=== PATIENT | male | born 1935 | race Caucasian/White ===

== ENCOUNTER 2018-10-06 15:15 | Emergency (ER) | payer MEDICARE ==
--- NOTE | 2018-10-06 16:07 | ERPHSYRPT ---
- History of Present Illness Time Seen by Provider: 10/06/18 15:26 Source: patient, family ( and kids) Exam Limitations: no limitations Patient Subjective Stated Complaint: Pt states "I am weak in the legs.". Family states "He has been getting lost in the house lately and he is very weak in the legs." Triage Nursing Assessment: PT alert and oriented X 3, skin pwd. PT ambulates with a stooped over gait, able to speak in clear full sentences. no apparent respiratory distress. Physician History: over last two weeks progressive weakness noted off and on in legs; able to walk but unsteady at times and at times hard to get up; no OCONNELL but occassional pain retro right eye; poor vision; gets confused in house and uses wrong door to get to bathroom; no fever; no N&V; no Diarrhea; no falls; memory otherwise ok Timing/Duration: week(s) (2), intermittent, gradual onset, worse Severity: moderate Modifying Factors: Improves With: nothing Associated Symptoms: weakness (lower greater then upper extremities) Allergies/Adverse Reactions: No Known Drug Allergies Allergy (Verified 10/06/18 15:43) Home Medications: Aspirin EC 81 mg [Ecotrin 81 mg] 81 mg PO DAILY 03/07/12 [History] Levothyroxine Sodium 100 Mcg [Synthroid 100 Mcg] 100 mg PO HS 03/07/12 [ History] Amlodipine Besylate 10 mg PO DAILY 10/06/18 [History] Simvastatin 20 mg PO DAILY 10/06/18 [History] Hx Tetanus, Diphtheria Vaccination/Date Given: No Hx Influenza Vaccination/Date Given: Yes Hx Pneumococcal Vaccination/Date Given: Yes Immunizations Up to Date: Yes - Review of Systems Constitutional: Weakness, Weight Loss, No Fever, No Chills, No Night Sweats Eyes: Eye Pain (right side occassionally), Vision Changes (poorer), No Photophobia Ears, Nose, & Throat: No Symptoms Respiratory: No Cough, No Dyspnea, No Wheezing Cardiac: No Chest Pain, No Palpitations, No Syncope Abdominal/Gastrointestinal: No Abdominal Pain, No Nausea, No Vomiting, No Diarrhea Genitourinary Symptoms: No Symptoms Musculoskeletal: No Symptoms Skin: No Symptoms Neurological: Focal Weakness (legs more then arms), Headache (occassionally retro bulbar right) Psychological: No Symptoms Endocrine: No Symptoms Hematologic/Lymphatic: No Symptoms Immunological/Allergic: No Symptoms - Past Medical History Pertinent Past Medical History: Yes Neurological History: No Pertinent History ENT History: No Pertinent History Cardiac History: High Cholesterol, Hypertension Respiratory History: No Pertinent History Endocrine Medical History: Hypothyroidism Musculoskeletal History: Arthritis GI Medical History: No Pertinent History History: No Pertinent History Psycho-Social History: No Pertinent History Male Reproductive Disorders: Prostate Cancer - Past Surgical History Past Surgical History: Yes Neuro Surgical History: No Pertinent History Cardiac: No Pertinent History Respiratory: No Pertinent History Gastrointestinal: No Pertinent History Genitourinary: No Pertinent History Musculoskeletal: No Pertinent History Male Surgical History: Prostate Surgery - Social History Smoking Status: Current every day smoker How long have you smoked: 70 years Exposure to second hand smoke: Yes Alcohol Use: Socially Drug Use: none Patient Lives Alone: No Significant Family History: no pertinent family hx - Nursing Vital Signs Nursing Vital Signs: Initial Vital Signs Temperature 98.3 F 10/06/18 15:27 Pulse Rate 136 H 10/06/18 15:27 Respiratory Rate 18 10/06/18 15:27 Blood Pressure 157/104 10/06/18 15:27 O2 Sat by Pulse Oximetry 96 10/06/18 15:27 Pain Scale Pain Intensity 0 - Physical Exam General Appearance: mild distress, alert, thin Eye Exam: PERRL/EOMI, eyes nml inspection, No photophobia Ears, Nose, Throat Exam: normal ENT inspection, TMs normal, pharynx normal, moist mucous membranes (semi) Neck Exam: normal inspection, non-tender, supple, full range of motion, No meningismus, No carotid bruit, No JVD Respiratory Exam: normal breath sounds, lungs clear, airway intact, No chest tenderness, No respiratory distress, No crackles/rales, No rhonchi, No wheezing Cardiovascular Exam: regular rate/rhythm, normal heart sounds, normal peripheral pulses, capillary refill 2-3 sec, No murmur, No edema Gastrointestinal/Abdomen Exam: soft, normal bowel sounds, No tenderness, No mass , No guarding, No pulsatile mass, No rebound, No organomegaly Rectal Exam: deferred Back Exam: normal inspection, normal range of motion, No CVA tenderness, No rash Extremity Exam: normal inspection, normal range of motion, No calf tenderness, No paralysis, No ora's sign, No pedal edema Neurologic Exam: alert, oriented x 3, cooperative, log tumbler II-XII nml as tested, normal mood/affect, nml cerebellar function, nml station & gait Skin Exam: normal color, warm, dry, No rash, No petechiae, No cyanosis SpO2 Interpretation: normal SpO2: 96 Oxygen Delivery: Room Air - Course Nursing assessment & vital signs reviewed: Yes EKG Interpreted by Me: RATE (121), A-fib, NORMAL AXIS, NORMAL INTERVALS, NORMAL QRS, Non-specific ST Changes, Other (AF wRVR at 121no old ekg) Rhythm Strip: Rate (121), Atrial Fibrillation, Atrial Tachycardia (rvr) - Radiology Exams Chest X-ray Interpretation: Reviewed by me, Teleradiologist Report, No Pneumothorax, Nml Heart Size, Other (new 4.6 cm mass RUL probable malignancy) - CT Exams Head CT Interpretation: Tele-radiologist Report, Other (new right occipital lobe mass 3.5x4.8x5.2cm with edemma; also 7-8 mm midline shift to left; no acute bleed) Ordered Tests: Active Orders 24 hr Category Date Time Status Accucheck STAT Care 10/06/18 15:41 Active City Dispatch Supervisor STAT Care 10/06/18 15:39 Active EKG-ER Only STAT Care 10/06/18 15:38 Active IV Insertion STAT Care 10/06/18 15:38 Active Orthostatic Vital Signs STAT Care 10/06/18 15:41 Active Pulse Oximetry (ED) STAT Care 10/06/18 15:38 Active Re-Check Vital Signs STAT Care 10/06/18 15:38 Active CHEST 1 VIEW (PORTABLE) Stat Exams 10/06/18 15:39 Completed HEAD WITHOUT CONTRAST [CT] Stat Exams 10/06/18 15:39 Completed BMP Stat Lab 10/06/18 16:22 Completed CBC W DIFF Stat Lab 10/06/18 16:22 Completed ETHYL ALCOHOL Stat Lab 10/06/18 16:22 Completed Lactic Acid Stat Lab 10/06/18 16:05 Completed NT PRO BNP Stat Lab 10/06/18 16:22 Completed PROTIME WITH INR Stat Lab 10/06/18 16:22 Completed PTT Stat Lab 10/06/18 16:22 Completed TROPONIN Q3H Lab 10/06/18 16:22 Completed TROPONIN Q3H Lab 10/06/18 18:45 Ordered TROPONIN Q3H Lab 10/06/18 21:45 Ordered TROPONIN Q3H Lab 10/07/18 00:45 Ordered TROPONIN Q3H Lab 10/07/18 03:45 Ordered UA W/RFX UR CULTURE Stat Lab 10/06/18 16:44 Ordered Urine Triage Profile Stat Lab 10/06/18 16:44 Ordered Lab/Rad Data: Laboratory Result Diagrams 10/06/18 16:22 10/06/18 16:22 Laboratory Results 10/06/18 10/06/18 10/06/18 Range/Units 16:22 16:22 16:22 WBC (4.0-10.5) K/mm3 RBC (4.1-5.6) M/mm3 Hgb (12.5-18.0) gm/dl Hct (42-50) % MCV (78-100) fl MCH (26-32) pg MCHC (32-36) g/dl RDW (11.5-14.0) % Plt Count (150-450) K/mm3 MPV (6-9.5) fl Gran % (36.0-66.0) % Eos # (Auto) (0-0.5) Absolute Lymphs (auto) (1.0-4.6) Absolute Monos (auto) (0.0-1.3) Lymphocytes % (24.0-44.0) % Monocytes % (0.0-12.0) % Eosinophils % (0.00-5.0) % Basophils % (0.0-0.4) % Absolute Granulocytes (1.4-6.9) Basophils # (0-0.4) PT 11.6 (8.83-12.87) SECONDS INR 1.00 (0.8-3.0) APTT 27.4 (24.1-36.1) SECONDS Sodium 131 L (137-145) mmol/L Potassium 3.9 (3.5-5.1) mmol/L Chloride 96 L (98-107) mmol/L Carbon Dioxide 28 (22-30) mmol/L Anion Gap 11.6 (5-15) MEQ/L BUN 20 (9-20) mg/dL Creatinine 1.91 H (0.66-1.25) mg/dL Estimated GFR 36.0 ML/MIN Glucose 100 (74-106) mg/dL Lactic Acid (0.4-2.0) Calcium 9.4 (8.4-10.2) mg/dL Troponin I < 0.012 (0.000-0.034) ng/mL NT-Pro-B Natriuret Pep 3120 H (0-1800) pg/mL Ethyl Alcohol < 10 (0-10) mg/dL Slides for Path Review 10/06/18 10/06/18 Range/Units 16:22 16:05 WBC 7.0 (4.0-10.5) K/mm3 RBC 4.61 (4.1-5.6) M/mm3 Hgb 15.4 (12.5-18.0) gm/dl Hct 45.7 (42-50) % MCV 99.1 (78-100) fl MCH 33.4 H (26-32) pg MCHC 33.7 (32-36) g/dl RDW 12.4 (11.5-14.0) % Plt Count 231 (150-450) K/mm3 MPV 11.7 H (6-9.5) fl Gran % 64.7 (36.0-66.0) % Eos # (Auto) 0.09 (0-0.5) Absolute Lymphs (auto) 1.48 (1.0-4.6) Absolute Monos (auto) 0.90 (0.0-1.3) Lymphocytes % 21.1 L (24.0-44.0) % Monocytes % 12.8 H (0.0-12.0) % Eosinophils % 1.3 (0.00-5.0) % Basophils % 0.1 (0.0-0.4) % Absolute Granulocytes 4.54 (1.4-6.9) Basophils # 0.01 (0-0.4) PT (8.83-12.87) SECONDS INR (0.8-3.0) APTT (24.1-36.1) SECONDS Sodium (137-145) mmol/L Potassium (3.5-5.1) mmol/L Chloride (98-107) mmol/L Carbon Dioxide (22-30) mmol/L Anion Gap (5-15) MEQ/L BUN (9-20) mg/dL Creatinine (0.66-1.25) mg/dL Estimated GFR ML/MIN Glucose (74-106) mg/dL Lactic Acid 1.0 (0.4-2.0) Calcium (8.4-10.2) mg/dL Troponin I (0.000-0.034) ng/mL NT-Pro-B Natriuret Pep (0-1800) pg/mL Ethyl Alcohol (0-10) mg/dL Slides for Path Review YES reviewed - Progress Progress: re-examined Progress Note: 10/06/18 16:07 family at bedside; CT; lab xr and CT pending 10/06/18 16:[address] findings with patietn and ; discussing living will , etc. 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
--- NOTE | 2018-10-06 16:14 | XRAY ---
Indication: Altered mental status. Multiple contiguous axial images obtained through the head without contrast. Comparison: January 27, 2006. There is a new right occipital lobe mass measuring at least 3.5 x 4.8 x 5.2 cm with vasogenic edema effacing the right occipital horn and trigone of the ventricular system. Also 7-8 mm midline shifting to the left. No acute intracranial hemorrhage. Age-related changes include global atrophy and moderate periventricular degenerative micro-ischemia bilaterally. Tiny remote appearing left basal ganglial lacunar infarct. Fourth ventricle is midline without hydrocephalus. Bony calvarium intact. Visualized paranasal sinuses and mastoid air cells are clear. Impression: 1. New right occipital lobe mass with vasogenic edema and midline shifting as detailed. MRI brain with contrast exam may yield further information. 2. Normal aging brain as evidenced by atrophy and degenerative microvascular ischemia. Left basal ganglia remote lacunar infarct. Comment: Telephone report given to ordering clinician Dr. Castillo at 1607 hrs. on October 06, 2018. CTDI 68.81
--- NOTE | 2018-10-06 16:16 | XRAY ---
Indication: Change in mental status. Comparison: November 13, 2010. Portable chest again hyperinflated with new 4.6 cm right apical mass, probable malignancy. No focal infiltrate, consolidation, or large effusion. Stable incidental tiny calcified granulomas. Heart is not enlarged. Bony thorax intact with mild osteopenia and degenerative changes. Impression: 1. New right apical mass. Rule out primary versus metastatic malignancy. 2. Stable COPD and evidence for old granulomatous disease.
[2018-10-06 16:25] LABS: BASOPHIL % 0.1 % (0.0-0.4); Basophil (Absolute #) 0.01 (0-0.4); Eosinophil % 1.3 % (0.00-5.0); Eosinophil (Absolute #) 0.09 (0-0.5); Granulocyte Absolute (ANC) 4.54 (1.4-6.9); Granulocytes % 64.7 % (36.0-66.0); Hematocrit 45.7 % (42-50); Hemoglobin 15.4 gm/dl (12.5-18.0); Lymphocyte (Absolute #) 1.48 (1.0-4.6); Lymphocytes % 21.1 % (24.0-44.0); Mean Cell Volume 99.1 fl (78-100); Mean Corpuscular Hemoglobin 33.4 pg (26-32); Mean Corpuscular Hgb Concent. 33.7 g/dl (32-36); Mean Platelet Volume 11.7 fl (6-9.5); Monocytes % 12.8 % (0.0-12.0); Platelet Count 231 K/mm3 (150-450); Red Blood Count 4.61 M/mm3 (4.1-5.6); Red Cell Distribution Width 12.4 % (11.5-14.0)
[2018-10-06 16:36] LABS: PTT 27.4 SECONDS (24.1-36.1)
[2018-10-06 16:45] LABS: Slide Review 1 YES
[2018-10-06 16:46] VITALS: O2SAT 96
[2018-10-06 16:47] LABS: ANION GAP 11.6 MEQ/L (5-15); BLOOD UREA NITROGEN 20 mg/dL (9-20); CHLORIDE 96 mmol/L (98-107); Calcium 9.4 mg/dL (8.4-10.2); Carbon Dioxide 28 mmol/L (22-30); Creatinine 1 1.91 mg/dL (0.66-1.25); ETHYL ALCOHOL < 10 mg/dL (0-10); Glucose 100 mg/dL (74-106); NT PRO BNP 3120 pg/mL (0-1800); Potassium 3.9 mmol/L (3.5-5.1); SODIUM 131 mmol/L (137-145)
[2018-10-06 17:33] VITALS: BP 130/92; PULSE 124
[2018-10-06 17:41] LABS: Appearance CLEAR (CLEAR); Bilirubin NEGATIVE (NEGATIVE); Blood NEGATIVE Ery/ul (0-5); Glucose NEGATIVE (NEGATIVE); Ketones TRACE (NEGATIVE); Leukocyte Esterase NEGATIVE (NEGATIVE); Nitrite NEGATIVE (NEGATIVE); Protein,Urine Dip 100 (Negative); Specific Gravity 1.008 (1.005-1.025); Urobilinogen NEGATIVE mg/dL (0-1)
[2018-10-06 17:51] LABS: Amphetamine,Urine NEGATIVE (NEGATIVE); Barbiturate,Urine NEGATIVE (NEGATIVE); Benzodiazepine,Urine NEGATIVE (NEGATIVE); Cocaine,Urine NEGATIVE (NEGATIVE); Methadone,Urine NEGATIVE (NEGATIVE); Opiate,Urine NEGATIVE (NEGATIVE); PCP,Urine NEGATIVE (NEGATIVE); THC,Urine NEGATIVE (NEGATIVE)
== END 2018-10-06 17:46 | disposition short-term general hospital (02) ==
LOC: ED 15:15
DX: R91.8 Other nonspecific abnormal finding of lung field (principal); R22.0 Localized swelling, mass and lump, head; R51 Headache; I48.91 Unspecified atrial fibrillation; Z79.899 Other long term (current) drug therapy; F17.200 Nicotine dependence, unspecified, uncomplicated
CPT/HCPCS: 36000; 36415; 70450; 71045; 80048; 80307; 81001; 82962; 83605; 83880; 84484; 85025; 85610; 85730; 93005; 93041; 99285; G0480

== ENCOUNTER 2018-10-27 08:30 | Emergency (ER) | payer MEDICARE ==
[2018-10-27] MEDS ORDERED: Sodium Chloride 0.9% 1000 ML 1,000 ML IV STA ×2 (08:40→08:53)
--- NOTE | 2018-10-27 08:49 | ERPHSYRPT ---
- History of Present Illness Time Seen by Provider: 10/27/18 08:43 Source: patient, family, EMS Exam Limitations: no limitations Physician History: 83-year-old white male with history of hyperlipidemia high blood pressure hypothyroidism arthritis, prostate cancer, brain and lung cancer Patient is on steroids. He is brought by medics with complaint of weakness since this morning he was noted to have a blood sugar over 500 by the medics. He has no chest pain no shortness of breath no other complaints. Past medical history includes hyperlipidemia, high blood pressure, hypothyroidism, arthritis, prostate cancer, brain and lung cancer. Past surgical history includes prostate surgery Timing/Duration: today Severity: moderate Modifying Factors: Improves With: other (patient is on steroids) Associated Symptoms: malaise, weakness, other (mouth is dry), No nausea, No vomiting, No abdominal pain, No shortness of breath, No heartburn, No diaphoresis, No cough, No chills, No chest pain, No fever, No headaches, No loss of appetite, No rash, No syncope, No seizure Allergies/Adverse Reactions: No Known Drug Allergies Allergy (Verified 10/06/18 15:43) Home Medications: Aspirin EC 81 mg [Ecotrin 81 mg] 81 mg PO DAILY 03/07/12 [History] Levothyroxine Sodium 100 Mcg [Synthroid 100 Mcg] 100 mg PO HS 03/07/12 [ History] Amlodipine Besylate 10 mg PO DAILY 10/06/18 [History] Simvastatin 20 mg PO DAILY 10/06/18 [History] Hx Tetanus, Diphtheria Vaccination/Date Given: No Hx Influenza Vaccination/Date Given: Yes Hx Pneumococcal Vaccination/Date Given: Yes - Review of Systems Constitutional: Malaise, Weakness, No Fever, No Chills, No Fatigue, No Lethargy , No Night Sweats, No Weight Loss Eyes: No Symptoms Ears, Nose, & Throat: No Symptoms, Other (mouth is dry) Respiratory: No Cough, No Dyspnea Cardiac: No Chest Pain, No Edema, No Syncope Abdominal/Gastrointestinal: No Abdominal Pain, No Nausea, No Vomiting, No Diarrhea Genitourinary Symptoms: No Dysuria Musculoskeletal: No Back Pain, No Neck Pain Skin: No Rash Neurological: No Dizziness, No Focal Weakness, No Sensory Changes Psychological: No Symptoms Endocrine: No Symptoms All Other Systems: Reviewed and Negative - Past Medical History Pertinent Past Medical History: Yes Neurological History: No Pertinent History ENT History: No Pertinent History Cardiac History: High Cholesterol, Hypertension Respiratory History: No Pertinent History Endocrine Medical History: Hypothyroidism Musculoskeletal History: Arthritis GI Medical History: No Pertinent History History: No Pertinent History Psycho-Social History: No Pertinent History Male Reproductive Disorders: Prostate Cancer - Past Surgical History Past Surgical History: Yes Neuro Surgical History: No Pertinent History Cardiac: No Pertinent History Respiratory: No Pertinent History Gastrointestinal: No Pertinent History Genitourinary: No Pertinent History Musculoskeletal: No Pertinent History Male Surgical History: Prostate Surgery - Social History Smoking Status: Current every day smoker How long have you smoked: 70 years Exposure to second hand smoke: Yes Alcohol Use: Socially Drug Use: none Patient Lives Alone: No Significant Family History: no pertinent family hx - Nursing Vital Signs Nursing Vital Signs: Initial Vital Signs Temperature 97.7 F 10/27/18 08:38 Pulse Rate 106 H 10/27/18 08:38 Respiratory Rate 18 10/27/18 08:38 Blood Pressure 144/116 10/27/18 08:38 O2 Sat by Pulse Oximetry 99 10/27/18 08:38 Pain Scale Pain Intensity 0 - Physical Exam General Appearance: other (elderly white male, thin. Oriented to person andplace ) Eye Exam: PERRL/EOMI, eyes nml inspection Ears, Nose, Throat Exam: TMs normal, pharynx normal, dry mucous membranes, No TM abnormal (R), No TM abnormal (L), No pharyngeal erythema Neck Exam: normal inspection, non-tender, supple, full range of motion Respiratory Exam: normal breath sounds, lungs clear, No respiratory distress Cardiovascular Exam: regular rate/rhythm, normal heart sounds, normal peripheral pulses, capillary refill <2 sec Gastrointestinal/Abdomen Exam: soft, normal bowel sounds, No tenderness, No mass Back Exam: normal inspection, normal range of motion, No CVA tenderness, No vertebral tenderness Extremity Exam: normal inspection, normal range of motion, pelvis stable Neurologic Exam: alert, oriented x 3, cooperative, database specialist II-XII nml as tested, normal mood/affect, nml cerebellar function, nml station & gait, sensation nml, No motor deficits Skin Exam: normal color, warm, dry, No rash SpO2 Interpretation: normal - Course Nursing assessment & vital signs reviewed: Yes EKG Interpreted by Me: RATE (131 bpm), A-fib, NORMAL AXIS, Other (EKG: Atrial fibrillation, 131 bpm, normal axis, no acute ST or T wave changes) - Radiology Exams Chest X-ray Interpretation: Discussed w/ radiologist (chest x-ray: New moderate left base effusion with adjacent infiltrate/ atelectasis. Minimally enlarging 5 cm mass, again worrisome for malgnancy, heart and mediastinal structures again within normal limits) Ordered Tests: Active Orders 24 hr Category Date Time Status Slate Handler STAT Care 10/27/18 08:42 Active EKG-ER Only STAT Care 10/27/18 08:40 Active IV Insertion STAT Care 10/27/18 08:40 Active CHEST 1 VIEW (PORTABLE) Stat Exams 10/27/18 08:40 Completed AMYLASE Stat Lab 10/27/18 09:05 Completed BLOOD CULTURE Stat Lab 10/27/18 08:55 Received CBC W DIFF Stat Lab 10/27/18 09:05 Completed CMP Stat Lab 10/27/18 09:05 Completed CULTURE,SPUTUM Stat Lab 10/27/18 09:48 Uncollected CULTURE,URINE Stat Lab 10/27/18 09:35 Received Glucose,Critical Care Urgent Lab 10/27/18 08:41 Completed LIPASE Stat Lab 10/27/18 09:05 Completed Lactic Acid Stat Lab 10/27/18 09:48 Completed Lactic Acid Stat Lab 10/27/18 12:05 Results Manual Differential NC Stat Lab 10/27/18 09:05 Completed TROPONIN Q3H Lab 10/27/18 09:05 Completed TROPONIN Q3H Lab 10/27/18 11:59 Completed TROPONIN Q3H Lab 10/27/18 15:00 Ordered TROPONIN Q3H Lab 10/27/18 18:00 Ordered TROPONIN Q3H Lab 10/27/18 21:00 Ordered UA W/RFX UR CULTURE Stat Lab 10/27/18 09:35 Completed VENOUS BLOOD GAS Urgent Lab 10/27/18 08:41 Completed Medication Summary Discontinued Medications Generic Name Dose Route Start Last Admin Trade Name Freq PRN Reason Stop Dose Admin Sodium Chloride 1,000 mls @ 999 mls/hr 10/27/18 08:40 10/27/18 10:44 Sodium Chloride 0.9% 1000 Ml IV 10/27/18 09:40 Infused .Q1H1M STA Infusion Sodium Chloride 1,000 mls @ 999 mls/hr 10/27/18 08:53 10/27/18 11:08 Sodium Chloride 0.9% 1000 Ml IV 10/27/18 09:53 Not Given .Q1H1M STA Sodium Chloride Confirm 10/27/18 09:20 Sodium Chloride 0.9% 1000 Ml Administered 10/27/18 09:21 Dose 1,000 mls @ ud .ROUTE .STK-MED ONE Ceftriaxone Sodium/Dextrose 1 g in 50 mls @ 100 mls/hr 10/27/18 09:48 10:00 Rocephin 1 Gm-D5w 50 Ml Bag IV 10/27/18 10:17 100 mls/hr STAT STA Administration Ceftriaxone Sodium/Dextrose Confirm 10/27/18 09:58 Rocephin 1 Gm-D5w 50 Ml Bag Administered 10/27/18 09:59 Dose 1 g in 50 mls @ ud IV .STK-MED ONE Insulin Human Regular 7 unit 10/27/18 09:58 10/27/18 10:04 Novolin R IV 10/27/18 09:59 7 unit STAT ONE Administration Insulin Human Regular Confirm 10/27/18 10:03 Novolin R Administered 10/27/18 10:04 Dose 7 unit .ROUTE .STK-MED ONE Lab/Rad Data: Laboratory Result Diagrams 10/27/18 09:05 10/27/18 09:05 Laboratory Results 10/27/18 10/27/18 10/27/18 Range/Units 12:05 11:59 09:48 WBC (4.0-10.5) K/mm3 RBC (4.1-5.6) M/mm3 Hgb (12.5-18.0) gm/dl Hct (42-50) % MCV (78-100) fl MCH (26-32) pg MCHC (32-36) g/dl RDW (11.5-14.0) % Plt Count (150-450) K/mm3 MPV (6-9.5) fl Segmented Neutrophils (36.-66.) % Lymphocytes (Manual) (24-44) % Monocytes (Manual) (0.0-12.0) % Toxic Granulation Platelet Estimate (NORMAL) RBC Morphology pO2/FiO2 Ratio % VBG pH (7.32-7.42) VBG pCO2 at Pat Temp (42-55) mm/Hg VBG pO2 at Pat Temp (25-40) mm/Hg VBG HCO3 (22-28) meq/L VBG O2 Sat (Gabriel) (95-100) VBG Base Excess (-2.0-2.0) VBG Hemoglobin VBG Carboxyhemoglobin (0.0-6.9) % T HGB POC Potassium (3.5-5.1) Glucose (70-110) Sodium (137-145) mmol/L Potassium (3.5-5.1) mmol/L Chloride (98-107) mmol/L Carbon Dioxide (22-30) mmol/L Anion Gap (5-15) MEQ/L BUN (9-20) mg/dL Creatinine (0.66-1.25) mg/dL Estimated GFR ML/MIN Lactic Acid 3.0 H 2.7 H (0.4-2.0) Calcium (8.4-10.2) mg/dL Total Bilirubin (0.2-1.3) mg/dL AST (17-59) U/L ALT (0-50) U/L Alkaline Phosphatase (38-126) U/L Troponin I 0.352 H* (0.000-0.034) ng/mL Serum Total Protein (6.3-8.2) g/dL Albumin (3.5-5.0) g/dL Amylase (30-110) U/L Lipase (23-300) U/L Urine Color (YELLOW) Urine Appearance (CLEAR) Urine pH (5-6) Ur Specific Derby (1.005-1.025) Urine Protein (Negative) Urine Ketones (NEGATIVE) Urine Blood (0-5) Monty/ul Urine Nitrite (NEGATIVE) Urine Bilirubin (NEGATIVE) Urine Urobilinogen (0-1) mg/dL Ur Leukocyte Esterase (NEGATIVE) Urine WBC (Auto) (0-5) /HPF Urine RBC (Auto) (0-2) /HPF U Hyaline Cast (Auto) (0-2) /LPF U Epithel Cells (Auto) (FEW) /HPF Urine Bacteria (Auto) (NEGATIVE) /HPF Other Casts (Auto) (NEGATIVE) /LPF Urine Mucus (Auto) (NEGATIVE) /HPF Urine Culture Reflexed (NO) Urine Glucose (NEGATIVE) mg/dL 10/27/18 10/27/18 10/27/18 Range/Units 09:35 09:05 09:05 WBC (4.0-10.5) K/mm3 RBC (4.1-5.6) M/mm3 Hgb (12.5-18.0) gm/dl Hct (42-50) % MCV (78-100) fl MCH (26-32) pg MCHC (32-36) g/dl RDW (11.5-14.0) % Plt Count (150-450) K/mm3 MPV (6-9.5) fl Segmented Neutrophils (36.-66.) % Lymphocytes (Manual) (24-44) % Monocytes (Manual) (0.0-12.0) % Toxic Granulation Platelet Estimate (NORMAL) RBC Morphology pO2/FiO2 Ratio % VBG pH (7.32-7.42) VBG pCO2 at Pat Temp (42-55) mm/Hg VBG pO2 at Pat Temp (25-40) mm/Hg VBG HCO3 (22-28) meq/L VBG O2 Sat (Gabriel) (95-100) VBG Base Excess (-2.0-2.0) VBG Hemoglobin VBG Carboxyhemoglobin (0.0-6.9) % T HGB POC Potassium (3.5-5.1) Glucose 487 H (70-110) Sodium 139 (137-145) mmol/L Potassium 4.5 (3.5-5.1) mmol/L Chloride 102 (98-107) mmol/L Carbon Dioxide 34 H (22-30) mmol/L Anion Gap 7.7 (5-15) MEQ/L BUN 60 H (9-20) mg/dL Creatinine 2.07 H (0.66-1.25) mg/dL Estimated GFR 32.8 ML/MIN Lactic Acid (0.4-2.0) Calcium 9.4 (8.4-10.2) mg/dL Total Bilirubin 1.20 (0.2-1.3) mg/dL AST 11 L (17-59) U/L ALT 30 (0-50) U/L Alkaline Phosphatase 129 H (38-126) U/L Troponin I 0.328 H* (0.000-0.034) ng/mL Serum Total Protein 5.2 L (6.3-8.2) g/dL Albumin 2.6 L (3.5-5.0) g/dL Amylase 37 (30-110) U/L Lipase 67 (23-300) U/L Urine Color YELLOW (YELLOW) Urine Appearance CLEAR (CLEAR) Urine pH 5.0 (5-6) Ur Specific [place] 1.017 (1.005-1.025) Urine Protein 100 (Negative) Urine Ketones NEGATIVE (NEGATIVE) Urine Blood SMALL (0-5) Monty/ul Urine Nitrite NEGATIVE (NEGATIVE) Urine Bilirubin NEGATIVE (NEGATIVE) Urine Urobilinogen NEGATIVE (0-1) mg/dL Ur Leukocyte Esterase NEGATIVE (NEGATIVE) Urine WBC (Auto) 0-2 (0-5) /HPF Urine RBC (Auto) 3-5 (0-2) /HPF U Hyaline Cast (Auto) 0-2 (0-2) /LPF U Epithel Cells (Auto) RARE (FEW) /HPF Urine Bacteria (Auto) RARE (NEGATIVE) /HPF Other Casts (Auto) NEGATIVE (NEGATIVE) /LPF Urine Mucus (Auto) SLIGHT (NEGATIVE) /HPF Urine Culture Reflexed YES (NO) Urine Glucose >=500 (NEGATIVE) mg/dL 10/27/18 10/27/18 Range/Units 09:05 08:41 WBC 15.6 H (4.0-10.5) K/mm3 RBC 4.01 L (4.1-5.6) M/mm3 Hgb 13.4 (12.5-18.0) gm/dl Hct 40.3 L (42-50) % MCV 100.5 H (78-100) fl MCH 33.4 H (26-32) pg MCHC 33.3 (32-36) g/dl RDW 13.4 (11.5-14.0) % Plt Count 95 L (150-450) K/mm3 MPV 12.9 H (6-9.5) fl Segmented Neutrophils 90 H (36.-66.) % Lymphocytes (Manual) 7 L (24-44) % Monocytes (Manual) 3 (0.0-12.0) % Toxic Granulation 1+ Platelet Estimate DECREASED (NORMAL) RBC Morphology NORMAL pO2/FiO2 Ratio 28.0 % VBG pH 7.44 H (7.32-7.42) VBG pCO2 at Pat Temp 50 (42-55) mm/Hg VBG pO2 at Pat Temp 24 L (25-40) mm/Hg VBG HCO3 34.0 H* (22-28) meq/L VBG O2 Sat (Gabriel) 43.6 L (95-100) VBG Base Excess 8.3 H (-2.0-2.0) VBG Hemoglobin 14.2 VBG Carboxyhemoglobin 2.5 (0.0-6.9) % T HGB POC Potassium 4.5 (3.5-5.1) Glucose 420 H (70-110) Sodium (137-145) mmol/L Potassium (3.5-5.1) mmol/L Chloride (98-107) mmol/L Carbon Dioxide (22-30) mmol/L Anion Gap (5-15) MEQ/L BUN (9-20) mg/dL Creatinine (0.66-1.25) mg/dL Estimated GFR ML/MIN Lactic Acid (0.4-2.0) Calcium (8.4-10.2) mg/dL Total Bilirubin (0.2-1.3) mg/dL AST (17-59) U/L ALT (0-50) U/L Alkaline Phosphatase (38-126) U/L Troponin I (0.000-0.034) ng/mL Serum Total Protein (6.3-8.2) g/dL Albumin (3.5-5.0) g/dL Amylase (30-110) U/L Lipase (23-300) U/L Urine Color (YELLOW) Urine Appearance (CLEAR) Urine pH (5-6) Ur Specific [place] (1.005-1.025) Urine Protein (Negative) Urine Ketones (NEGATIVE) Urine Blood (0-5) Monty/ul Urine Nitrite (NEGATIVE) Urine Bilirubin (NEGATIVE) Urine Urobilinogen (0-1) mg/dL Ur Leukocyte Esterase (NEGATIVE) Urine WBC (Auto) (0-5) /HPF Urine RBC (Auto) (0-2) /HPF U Hyaline Cast (Auto) (0-2) /LPF U Epithel Cells (Auto) (FEW) /HPF Urine Bacteria (Auto) (NEGATIVE) /HPF Other Casts (Auto) (NEGATIVE) /LPF Urine Mucus (Auto) (NEGATIVE) /HPF Urine Culture Reflexed (NO) Urine Glucose (NEGATIVE) mg/dL - Progress Progress: improved Progress Note: 10/27/18 09:49 83-year-old white male brought by medics with complaints of feeling weak since this morning. Patient appears to be dehydrated blood sugars were noted to be over 500. IV normal saline initially ordered at 2 L bolus however chest x-ray is remarkable for a new moderate left basilar effusion with adjacent infiltrate/ atelectasis Patient's pH is a 7.44 PCO2 is a 25 I have asked him to decrease the rate of the patient's IV normal saline to 200. Patient does have a BUN of 60 and a creatinine of 2.07 unfortunately the patient 's troponin is elevated at 0.328 patient's EKG remarkable for atrial fibrillation 131 bpm normal axis there does not appear to be acute ST or T wave changes Labs CBC White blood cell 13.6 hemoglobin 13.4 hematocrit 40.3 platelets 95 Venous gases pH 7.44 PCO2 25 Patient's chemistry sodium 139 potassium 4.5 chloride 102 bicarbonate 34 BUN 60 creatinine 2.07 glucose 487 Troponin 0.328 I've asked for blood cultures on this patient lactate level and sputum cultures. We'll go ahead and give Rocephin 1 g IV when these have been obtained. Also will give patient coverage I have just asked for repeat Accu-Chek. impression 1 weakness 2. Hyperglycemia 3. Dehydration 4. Left basilar effusion with atelectasis versus infiltrate. 5. Right apical lung mass 10/27/18 10:25 The patient's states that the patient saw Dr. Rolf Desai in with [facility] yesterday. Patient apparently has been pulled off of all anticoagulants secondary to a brain mass. I have ordered Humulin insulin 7 units IV patient is receiving normal saline at 200 mL per hour and has received Rocephin 1 g IV. Will discuss with [facility] one call. 10/27/18 10:38 I discussed the patient's case with Dr. Toth. She has excepted the patient for transfer to [facility] emergency room. Will hold aspirin at this time secondary to history of brain lesion and the fact that patient apparently was pulled off all anticoagulants by his physicians. Patient appears to be somewhat improving after receiving IV fluids he is now receiving normal saline at 200 mL per hour. He has received Rocephin 1 g IV. Cultures have been obtained. Patient has also received a total of 7 units Humulin R IV. Impression 1 generalized weakness. 2 hyperlycemia. 3 left pleural effusion. With atelectasis versus infiltrate 4 right apical mass. 5. dehydration. 10/27/18 10:42 - Departure Time of Disposition: 10:42 Departure Disposition: Transfer ([facility]) Clinical Impression: Generalized weakness, Hyperglycemia, Pleural effusion, left, Left atelectasis/ infiltrate, Dehydration, history of brain mass, History of lung cancer Condition: Fair Critical Care Time: No Referrals: TRAVON PENA [ACTIVE STAFF] -
[2018-10-27 09:05] LABS: VBG BASE EXCESS 8.3 (-2.0-2.0); VBG CARBOXYHEMOGLOBIN 2.5 % T HGB (0.0-6.9); VBG HEMOGLOBIN 14.2; VBG O2 SATURATION 43.6 (95-100); VBG POTASSIUM 4.5 (3.5-5.1); VBG pH 7.44 (7.32-7.42)
[2018-10-27 09:10] LABS: Hematocrit 40.3 % (42-50); Hemoglobin 13.4 gm/dl (12.5-18.0); Mean Cell Volume 100.5 fl (78-100); Mean Corpuscular Hemoglobin 33.4 pg (26-32); Mean Corpuscular Hgb Concent. 33.3 g/dl (32-36); Mean Platelet Volume 12.9 fl (6-9.5); Platelet Count 95 K/mm3 (150-450); Red Blood Count 4.01 M/mm3 (4.1-5.6); Red Cell Distribution Width 13.4 % (11.5-14.0); White Blood Count 15.6 K/mm3 (4.0-10.5)
[2018-10-27 09:11] VITALS: O2SAT 99
--- NOTE | 2018-10-27 09:19 | XRAY ---
Indication: Cough. Weakness. Comparison: October 06, 2018. Portable chest demonstrates new moderate left base effusion with adjacent infiltrate/atelectasis. Minimally enlarging 5 cm right apical mass again worrisome for malignancy. Heart and mediastinal structures again within normal limits.
[2018-10-27 09:20] LABS: ALBUMIN 2.6 g/dL (3.5-5.0); ANION GAP 7.7 MEQ/L (5-15); BILIRUBIN,TOTAL 1.2 mg/dL (0.2-1.3); Calcium 9.4 mg/dL (8.4-10.2); Creatinine 1 2.07 mg/dL (0.66-1.25); Potassium 4.5 mmol/L (3.5-5.1); Total Protein 5.2 g/dL (6.3-8.2)
[2018-10-27] MEDS ORDERED: Sodium Chloride 0.9% 1000 ML 1,000 ML ONE (09:20)
[2018-10-27 09:45] LABS: Appearance CLEAR (CLEAR); Bilirubin NEGATIVE (NEGATIVE); Blood SMALL Ery/ul (0-5); Glucose >=500 mg/dL (NEGATIVE); Ketones NEGATIVE (NEGATIVE); Leukocyte Esterase NEGATIVE (NEGATIVE); Mucus SLIGHT /HPF (NEGATIVE); Nitrite NEGATIVE (NEGATIVE); Protein,Urine Dip 100 (Negative); Specific Gravity 1.017 (1.005-1.025); Urobilinogen NEGATIVE mg/dL (0-1)
[2018-10-27 09:46] LABS: Bacteria RARE /HPF (NEGATIVE); Hyaline Casts 0-2 /LPF (0-2); WBC 0-2 /HPF (0-5)
[2018-10-27 09:47] LABS: Epithelial Cells RARE /HPF (FEW)
[2018-10-27] MEDS ORDERED: ROCEPHIN 1 Gm-D5w 50 ml Bag** 1 G/50 ML IVPB IV STA (09:48)
[2018-10-27 09:52] LABS: Lymphocytes 7 % (24-44); Monocyte 3 % (0.0-12.0); Neutrophils 90 % (36.-66.); Platelet Estimate DECREASED (NORMAL); Total Cells Counted 100; Toxic Granulation 1+
[2018-10-27] MEDS ORDERED: ROCEPHIN 1 Gm-D5w 50 ml Bag** 1 G/50 ML IVPB IV ONE (09:58)
[2018-10-27] MEDS ORDERED: NovoLIN R IV ONE (09:58)
[2018-10-27] MEDS ORDERED: NovoLIN R ONE (10:03)
[2018-10-27 10:05] LABS: Lactic Acid 2.7 (0.4-2.0)
[2018-10-27 11:07] VITALS: BP 151/96
[2018-10-27 11:34] VITALS: PULSE 122
== END 2018-10-27 13:14 | disposition short-term general hospital (02) ==
LOC: ED 08:30
DX: M62.81 Muscle weakness (generalized) (principal); R73.9 Hyperglycemia, unspecified; J90 Pleural effusion, not elsewhere classified; R91.8 Other nonspecific abnormal finding of lung field; E86.0 Dehydration; Z85.118 Personal history of other malignant neoplasm of bronchus and lung; E78.5 Hyperlipidemia, unspecified; E03.9 Hypothyroidism, unspecified; M19.90 Unspecified osteoarthritis, unspecified site; Z85.46 Personal history of malignant neoplasm of prostate; I10 Essential (primary) hypertension; Z72.0 Tobacco use; I48.91 Unspecified atrial fibrillation; Z79.899 Other long term (current) drug therapy
CPT/HCPCS: 36415; 71045; 80053; 81001; 82150; 82805; 82947; 82962; 83605; 83690; 84484; 85025; 87040; 87086; 93005; 93041; 96360; 96365; 96372; 99285; J0696; A9270-GY